=== PATIENT | female | born 2000 | race Caucasian/White ===

== ENCOUNTER 2018-08-10 10:15 | Inpatient (IN) | payer OTHER ==
[~2018-08-10 10:15] MED LIST: Buffered Lidocaine 0.9% SYRIN* 5 ML/SYR SYRINGE INTRADERM ONE; Dexamethasone IV* 4 MG/ML 1 ML (4 MG) IV SLOW PU ONE; Famotidine IV* 10 MG/ML 2 ML (20 mg) IV ONE; Scopolamine 1.5 mg* PATCH TRANSDERM ONE
--- OUTSIDE RECORDS SUMMARY | 2018-08-10 10:21 | XMS REPORT | Continuity of Care Document ---
:2000 External Reference #:[id number] Demographics Phone Unavailable Preferred Language Unknown Marital Status Unknown Temple Affiliation Unknown Race Unknown Ethnic Group Unknown Author Name Stephani Mcclain Care Team Providers Name Role Phone Victorino Riggins M.D. Care Team Information Copy Center Specialist Unavailable Payers Description No Information Available Advance Directives Description No Information Available Problems Description No Information Family History Description No Information Available Social History Type Date Description Comments Sex Unknown Allergies, Adverse Reactions, Alerts Description No Information Medications Description No Information Immunizations Description No Information Available Vital Signs Description No Information Available Results Description No Information Available Procedures Description No Information Available Encounters Description No Information Available Plan of Treatment No Information Available
[2018-08-10] MEDS ORDERED: Dexamethasone IV* 4 MG/ML 1 ML (4 MG) ONE (11:07)
[2018-08-10] MEDS ORDERED: Famotidine IV* 10 MG/ML 2 ML (20 mg) ONE (11:07)
[2018-08-10] MEDS ORDERED: Heparin VIAL(*) 5000 UNITS/ML VIAL (FIVE THOUSAND) ONE (11:08)
[2018-08-10] MEDS ORDERED: Scopolamine 1.5 mg* PATCH ONE (11:08)
[2018-08-10] MEDS ORDERED: ceFAZolin 1 GM ADVAN(*) 1 GM ADDV.VIAL IVPB ONE (11:09)
[2018-08-10] MEDS ORDERED: Clindamycin 900 MG/D5W BAG(*) 900 MG/50 ML BAG IVPB ONE (11:09)
[2018-08-10] MEDS ORDERED: ceFAZolin 2 GM PREMIX in ORs 2 GM/50 ML BAG IVPB ONE (11:09)
[2018-08-10] MEDS ORDERED: Bupivacaine 0.25% EPI 200,000* 30 ML SDV ONE (12:29)
[2018-08-10] MEDS ORDERED: Lidocaine 2% PF * 5 ML VIAL ONE (12:56)
[2018-08-10] MEDS ORDERED: Propofol* 10 MG/ML 20 ML BTL ONE (12:56)
[2018-08-10] MEDS ORDERED: Rocuronium* 10 MG/ML VIAL ONE (12:56)
[2018-08-10] MEDS ORDERED: Midazolam* 1 MG/ML 5 ML VIAL (5 MG) ONE (12:57)
[2018-08-10] MEDS ORDERED: fentaNYL* 50 MCG/ML 5 ML VIAL (250 MCG VIAL) ONE (12:58)
[2018-08-10] MEDS ORDERED: Phenylephrine IV* 40 MCG/ML 10 ML SYRINGE ONE (14:15)
[2018-08-10] MEDS ORDERED: EPHEDrine (Pressors)* 50 MG/ML VIAL ONE (14:20)
[2018-08-10] MEDS ORDERED: Ketorolac INJ* 30 MG/ML 1 ML VIAL ONE (14:30)
[2018-08-10] MEDS ORDERED: Ondansetron INJ* 2 MG/ML VIAL ONE ×2 (14:40→17:44)
[2018-08-10] MEDS ORDERED: Sugammadex * 200 MG/2 ML VIAL IV PUSH ONE (14:46)
[2018-08-10] MEDS ORDERED: fentaNYL* 50 MCG/ML 2 ML VIAL (100 MCG VIAL) ONE ×2 (14:51→15:41)
[2018-08-10] MEDS ORDERED: HYDROmorphone INJ1* 1 MG/ML SYRINGE IV PRN (15:08)
[2018-08-10] MEDS ORDERED: Acetaminophen ADULT LIQ* 650 MG/20.3 ML UDC PO PRN (15:08)
[2018-08-10] MEDS ORDERED: Ondansetron INJ* 2 MG/ML VIAL IV PRN (15:08)
[2018-08-10] MEDS ORDERED: HYDROmorphone INJ* 1 MG/ML CARPUJECT SYRINGE IV SLOW PU PRN (15:20)
--- NOTE | 2018-08-10 15:28 | OP ---
Operative Report - Blank - Operative Report Date of Operation: 08/10/18 Note: Brief Operative Note Preop Dx: Morbid Obesity Postop Dx: Same Procedure: Laparoscopic Sleeve Gastrectomy Anesthesia: GET Surgeon: Dr. Noland Camp Tender: Kal Jacobsen PA-C, SWAPNA Hoang Fluids: 1600 mL EBL: 10 cc Specimen: Portion of stomach Drains: None Findings: dictated
[2018-08-10] MEDS ORDERED: Acetaminophen IV 1GM/100ML * 1,000 MG/100 ML VIAL IVPB ONE (15:33)
[2018-08-10] MEDS ORDERED: PROCHLORPERAZINE INJ 5 MG/ML 2 ML VIAL IV PRN ×2 (15:33→21:36)
[2018-08-10] MEDS ORDERED: Naloxone* 0.4 MG/ML 1 ML VIAL IV PRN (15:33)
[2018-08-10] MEDS ORDERED: Acetaminophen IV 1GM/100ML * 100 ML ONE (15:41)
[2018-08-10] MEDS ORDERED: PROCHLORPERAZINE INJ 5 MG/ML 2 ML VIAL ONE ×2 (15:50→20:50)
[2018-08-10] MEDS: fentaNYL* 50 MCG/ML 2 ML VIAL (100 MCG VIAL) IV PRN ×2 (16:03→16:47)
[2018-08-10] MEDS ORDERED: HYDROmorphone INJ1* 1 MG/ML SYRINGE ONE (18:11)
[2018-08-10] MEDS ORDERED: HYDROmorphone INJ1* 1 MG/ML SYRINGE IV SLOW PU PRN (18:51)
[2018-08-10] MEDS: Heparin VIAL(*) 5000 UNITS/ML VIAL (FIVE THOUSAND) SUBCUT SCH (22:44)
[2018-08-11] MEDS: Ketorolac INJ* 30 MG/ML 1 ML VIAL IV PRN ×2 (00:19→06:12)
[2018-08-11] MEDS: Heparin VIAL(*) 5000 UNITS/ML VIAL (FIVE THOUSAND) SUBCUT SCH ×3 (06:14→22:22)
--- NOTE | 2018-08-11 09:52 | PN ---
Progress Note - Progress Note Date of Service: 08/11/18 SOAP: Subjective: She has had episodes of bloody emesis. Nausea is controlled. She denies significant pain. Objective: Vital Signs Temp 98.3 F 08/11/18 07:48 Pulse 108 08/11/18 07:48 Resp 18 08/11/18 08:00 BP 143/90 08/11/18 07:48 Pulse Ox 97 08/11/18 08:00 Gen: NAD; lying in bed; awake, alert. Flat affect. Abd: incisions c/d/i; no erythema or ecchymosis. Soft, NT. Intake & Output 08/10/18 08/11/18 08/11/18 18:59 06:59 18:59 Intake Total 2500 1970 Output Total 2100 Balance 2500 -130 Weight 248 lb Intake: IV Fluids 2500 1970 CEFAZOLIN 3G 100 CLINDAMYCIN 900MG 50 LR 2350 1970 Oral 0 Output: Urine 2100 Assessment: POD#1 s/p LSG with post op hematemesis and tachycardia. Plan: Will check CBC. Ok to start clears. Plan for d/c in AM if doing well. D/w patient and mother.
[2018-08-11] MEDS: HYDROcodone/ACET. 7.5/325 LIQ* 15 ML UDC PO PRN ×3 (10:17→22:21)
[2018-08-11 10:22] LABS: ABS Basophils 0 10^3/ul (0-0.2); ABS Eosinophils 0 10^3/ul (0-0.6); ABS Lymphocytes 3.1 10^3/ul (1.0-4.8); ABS Monocytes 1.2 10^3/ul (0-0.8); ABS Neutrophils 10.3 10^3/ul (1.5-7.7); ABS Nucleated RBC 0 10^3/ul; Eosinophil % 0.1 %; Hematocrit 35 % (35-47); Hemoglobin 11.5 g/dl (12.0-16.0); Lymphocyte % 21.4 %; Mean Corpuscular HGB Conc 33 g/dl (31-36); Mean Corpuscular Hemoglobin 27 pg (27-31); Mean Corpuscular Volume 82 fL (80-97); Mean Platelet Volume 7.5 fL (7.4-10.4); Nucleated Red Blood Cells % 0; Platelet Count 384 10^3/ul (150-450); Red Blood Count 4.31 10^6/ul (4.00-5.40); Red Cell Distribution Width 15 % (10.5-15); White Blood Count 14.7 10^3/ul (3.5-10.8)
[2018-08-11] MEDS: D5W 1/2 NS KCl 20 Meq 1000 ML* 1,000 ML IV SCH ×2 (15:16→23:19)
--- NOTE | 2018-08-11 20:30 | OP ---
CC: [facility]; Giovanna Lynn MD * DATE OF OPERATION: 08/10/18 - ROOM #352 DATE OF : [birth year] SURGEON: Poli Loredo MD IRRIGATIONIST: KRISTINA Virgen ANESTHESIOLOGIST: Dr. Jeronimo. ANESTHESIA: General endotracheal. PRE-OP DIAGNOSIS: Morbid obesity. POST-OP DIAGNOSIS: Morbid obesity. OPERATIVE PROCEDURE: Laparoscopic sleeve gastrectomy. ESTIMATED BLOOD LOSS: 10 mL. IV FLUIDS: 1.6 L crystalloid. SPECIMEN: Portion of stomach. DRAINS: None. COMPLICATIONS: None. COUNTS: Instrument, needle, sponge counts correct. DESCRIPTION OF PROCEDURE: The patient was brought to the operating room and placed on table in supine. Sequential compression devices were placed on both lower extremities. General anesthesia was administered. The abdomen was prepped and draped in usual sterile fashion. A time-out was performed. Local anesthetic was infiltrated into the skin and soft tissues prior to making each incision. Entry to the abdomen was performed after accessing the peritoneal cavity using the Veress needle in the umbilical position. After insufflating to 15 mmHg with carbon dioxide, a left upper quadrant incision was created to accommodate a 5-mm optical trocar. After accessing the peritoneal cavity, inspection revealed no injury to the underlying viscera. The additional trocars were placed under direct visualization. These included a 12-mm trocar in the right upper quadrant, a 12-mm trocar in the supraumbilical midline, and a 5-mm trocar in the left upper quadrant laterally. A Eze liver retractor was placed percutaneously in the subxiphoid position to elevate the left lobe of the liver. Dissection then proceeded on the lesser curvature entering the lesser sac using the LigaSure. The skeletonization of the greater curvature of the stomach was performed up to the left edvin at the angle of His. There were no adhesions in the lesser sac. The dissection proceeded distally along the greater curvature until a point that was 6- cm proximal to the pylorus. At this point, the dissection was concluded. Next, a sleeve gastrectomy was performed over a 40 Cymro bougie using serial firings of the Endo KP stapler with 60-mm purple cartridges with reinforcement. After completing the sleeve gastrectomy, the specimen was retrieved through the right upper quadrant wound using endoscopic retrieval bag. The wound was subsequently closed with a single 0 Vicryl suture to approximate the muscle and fascia. After assuring hemostasis and inspecting the staple lines and finding them to be intact, the ports were removed and carbon dioxide was released. The skin incisions were closed with 4-0 Monocryl in subcuticular fashion and Steri-Strips were applied. The patient tolerated the procedure well. She was extubated and transferred to recovery room in stable condition. [id number]/[facility] #: [id number] MARICEL
[2018-08-12] MEDS: Heparin VIAL(*) 5000 UNITS/ML VIAL (FIVE THOUSAND) SUBCUT SCH ×2 (06:23→13:09)
[2018-08-12] MEDS: HYDROcodone/ACET. 7.5/325 LIQ* 15 ML UDC PO PRN (07:16)
[2018-08-12] MEDS: D5W 1/2 NS KCl 20 Meq 1000 ML* 1,000 ML IV SCH (07:17)
[2018-08-12 11:50] VITALS: BP 145/88
[2018-08-13] MEDS ORDERED: Scopolamine PATCH Remove* 1 NOTE MISC PATCH OFF ONE (06:00)
--- NOTE | 2018-08-13 11:16 | DS ---
AMENDED REPORT NOW INCLUDES DESIGNATED COSIGNER CC: Dr. Giovanna Acosta * DISCHARGE SUMMARY: DATE OF ADMISSION: 08/10/18 DATE OF DISCHARGE: 08/12/18 ATTENDING SURGEON: Poli Loredo MD * (DICTATED BY EDGAR YBARRA NP) HOSPITAL COURSE: Please refer to admission history and physical for admission details. The patient was taken to the operating room on 08/10/18 and underwent laparoscopic sleeve gastrectomy. Postoperatively, she had 2 episodes of hematemesis and her CBC was stable. She was started on bariatric clear liquids and otherwise had an uneventful postoperative course. As of the day of discharge, she was tolerating 120 mL of clear liquids per hour, her pain was well controlled. She was ambulating in the halls using Inspiron and had a large urine output. PHYSICAL EXAMINATION: Vital Signs: Temp 99.1, heart rate 90, respiratory rate 18, O2 saturations 98% on room air, blood pressure stable 145/88. Lungs: Breath sounds bilaterally clear and equal. Heart: Regular, rate, and rhythm. Abdomen: Obese, soft, and nondistended. Incisions are intact with Steri- Strips. No surrounding erythema or drainage. Bowel sounds were present and the abdomen is soft and appropriately tender around the incisions. Extremities are warm without edema. Calves are nontender. IMPRESSION: Status post laparoscopic sleeve gastrectomy, doing well. PLAN: Discharge home today; discharge instructions were reviewed with the patient. Prescriptions were provided for liquid adult strength acetaminophen, liquid hydrocodone/acetaminophen, and Zofran oral dissolving tablets. She will follow the prescribed bariatric dietary guidelines and she will have a followup appointment with Dr. Loredo at [facility] within 1 week. EDGAR YBARRA NP [id number]/[facility] #: [id number] [facility]ITAL[facility]len[facility]
== END 2018-08-12 13:50 | disposition home or self-care (01) | DRG 620 ==
LOC: AA 10:15 → SSU 15:08
PROVIDERS: ADMIT Surgery; ATTEND Surgery
PROC: 0DB64Z3 Excision of Stomach, Percutaneous Endoscopic Approach, Vertical (ICD-10-PCS; principal; 2018-08-10 12:00)
DX: E66.01 Morbid (severe) obesity due to excess calories (principal); F41.9 Anxiety disorder, unspecified; F32.9 Major depressive disorder, single episode, unspecified; E78.2 Mixed hyperlipidemia; E28.2 Polycystic ovarian syndrome; R73.03 Prediabetes; Z83.3 Family history of diabetes mellitus; Z56.0 Unemployment, unspecified; Z83.49 Family history of other endocrine, nutritional and metabolic diseases; Z68.41 Body mass index [BMI] 40.0-44.9, adult; R00.0 Tachycardia, unspecified; K92.0 Hematemesis
CPT/HCPCS: 36415; 43775; 81025; 85025; 88307; A9270-GY; J0690; J0780; J1100; J1170; J1644; J1885; J2250; J2405; J2704; J3010